=== PATIENT | female | born 1940 | race Two or more races ===

== ENCOUNTER 2021-09-27 11:49 | Emergency (ER) | payer MEDICARE, OTHER ==
[~2021-09-27] VITALS: Ht 157.5 cm; Wt 85.3 kg
[~2021-09-27 11:49] MED LIST: ATOR20TA PO; FAMO20TA8 PO
--- NOTE | 2021-09-27 11:55 | NUR ---
AT BEDSIDE FOR EVAL.
[2021-09-27] MEDS ORDERED: HYDROCODONE/APAP 5/325MG TABLET PO ONE (12:00)
--- NOTE | 2021-09-27 12:09 | NUR ---
[facility] [id number]
[2021-09-27] MEDS ORDERED: HYDROCODONE/APAP 5/325MG TABLET ONE (12:15)
--- NOTE | 2021-09-27 12:15 | NUR ---
[employer] AT BEDSIDE.
--- NOTE | 2021-09-27 12:29 | NUR ---
PT TAKEN TO CT VIA [facility]
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
[2021-09-27] MEDS ORDERED: HYDR-4275 PO (13:59)
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
--- NOTE | 2021-09-27 14:59 | NUR ---
Patient discharged to home in stable condition. Written and verbal after care instructions given to Patient and patient health care liaison verbalizes understanding of instruction.
[2021-09-27 15:00] VITALS: BP 132/71
[2021-09-27] MEDS ORDERED: HYDR-4303 PO (17:56)
== END 2021-09-27 15:00 | disposition home or self-care (01) ==
LOC: ER 11:53
DX: S42.212A Unspecified displaced fracture of surgical neck of left humerus, initial encounter for closed fracture (principal); K21.9 Gastro-esophageal reflux disease without esophagitis; E78.00 Pure hypercholesterolemia, unspecified; Z79.899 Other long term (current) drug therapy; W18.39XA Other fall on same level, initial encounter; Y93.89 Activity, other specified; Y92.89 Other specified places as the place of occurrence of the external cause; Y99.8 Other external cause status
CPT/HCPCS: 70450-TC; 73030-TC; 73060-TC

== ENCOUNTER 2021-12-16 14:11 | Emergency (ER) | payer MEDICARE, OTHER ==
[~2021-12-16] VITALS: Ht 160 cm; Wt 72.6 kg
[~2021-12-16 14:11] MED LIST changes: +HYDR-4303 PO
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
--- NOTE | 2021-12-16 15:02 | NUR ---
SEEN AND EXAMINED BY DR SANTIAGO
[2021-12-16 15:31] LABS: BASOPHILS % (AUTO) 0.4 % (0.0-2.0); EOSINOPHILS % (AUTO) 0.8 % (0.0-6.0); HEMATOCRIT 37 % (33-45); HEMOGLOBIN 11.6 g/dL (11.5-14.8); LYMPHOCYTES # (AUTO) 0.9 K/uL (0.8-4.8); LYMPHOCYTES % (AUTO) 13.9 % (20.0-44.0); MEAN CORPUSCULAR HGB CONC 31 g/dl (31.0-36.0); MEAN CORPUSCULAR VOLUME 96 fL (82-100); MONOCYTES # (AUTO) 0.6 K/uL (0.1-1.30); MONOCYTES % (AUTO) 9.1 % (2.0-12.0); NEUTROPHILS # (AUTO) 5.1 K/uL (1.8-8.9); NEUTROPHILS % (AUTO) 75.8 % (43.0-81.0); PLATELET COUNT (AUTO) 247 K/uL (150-450); RED BLOOD CELL COUNT(AUTO) 3.88 MIL/uL (4.0-5.2); WHITE BLOOD COUNT (AUTO) 6.8 K/uL (4.3-11.0)
--- NOTE | 2021-12-16 16:40 | NUR ---
MD MADE AWARE OF BLOOD PRESSURE
[2021-12-16] MEDS ORDERED: hydrALAZINE HCL IV 20 MG VIAL IV ONE (17:00)
[2021-12-16] MEDS ORDERED: hydrALAZINE HCL IV 20 MG VIAL ONE (17:31)
[2021-12-16 17:54] LABS: ALANINE AMINOTRANSFERASE 45 U/L (12-78); ALBUMIN 3.3 g/dL (3.4-5.0); ALKALINE PHOSPHATASE 91 U/L (46-116); ASPARTATE AMINOTRANSFERASE 29 U/L (15-37); BILIRUBIN,DIRECT 0.1 mg/dL (0.0-0.2); BILIRUBIN,TOTAL 0.3 mg/dL (0.2-1.0); CALCIUM, SERUM 9.4 mg/dL (8.5-10.1); CARBON DIOXIDE 27 mmol/L (21-32); CHLORIDE 105 mmol/L (98-107); GLUCOSE 118 mg/dL (74-106); POTASSIUM 3.7 mmol/L (3.5-5.1); SODIUM SERUM 140 mmol/L (136-145); TOTAL PROTEIN, SERUM 7.1 g/dL (6.4-8.2); UREA NITROGEN, BLOOD 30 mg/dL (7-18)
--- NOTE | 2021-12-16 18:38 | NUR ---
PT TEST ALL RESULTED AWARE. AWAITING DISPOSITION.
--- NOTE | 2021-12-16 19:20 | NUR ---
REPORT GIVEN TO OLGA LIDIA WELCH FOR [facility]
[2021-12-16] MEDS ORDERED: ACET-868 PO (19:58)
[2021-12-16] MEDS ORDERED: ONDA4TAB5 PO (19:59)
--- NOTE | 2021-12-16 20:22 | NUR ---
Patient discharged to home in stable condition. Written and verbal after care instructions given. Patient verbalizes understanding of instruction. IV removed. Catheter intact and site benign. Pressure and 4x4 applied to site. No bleeding noted. pt ambulatory with a steady gait
[2021-12-16 20:23] VITALS: BP 135/78
== END 2021-12-16 20:24 | disposition home or self-care (01) ==
LOC: ER 14:17
DX: R07.89 Other chest pain (principal); R42 Dizziness and giddiness; R11.0 Nausea; F41.9 Anxiety disorder, unspecified; E03.9 Hypothyroidism, unspecified; K21.9 Gastro-esophageal reflux disease without esophagitis; E78.00 Pure hypercholesterolemia, unspecified; Z79.891 Long term (current) use of opiate analgesic; Z79.899 Other long term (current) drug therapy
CPT/HCPCS: 36415; 70450; 71045; 80048; 80076; 83880; 84484 ×2; 85025; 93005; 96374; 99285; J0360; J7030